=== PATIENT | male | born 1970 | race Caucasian/White ===

== ENCOUNTER 2016-09-11 10:13 | Inpatient (IN) | payer OTHER, MEDICARE ==
[~2016-09-11] VITALS: Ht 177.8 cm; Wt 64.9 kg
[2016-09-11] MEDS ORDERED: SODIUM CHLORIDE 0.9% 1,000ML IVBOLUS ONE (11:00)
[2016-09-11 12:21] LABS: ASPARTATE AMINO TRANSFERASE 33 U/L (15-37); BLOOD UREA NITROGEN 17 mg/dL (7-18)
[2016-09-11] MEDS ORDERED: DOLU50TA PO (12:50)
[2016-09-11] MEDS ORDERED: EMTR1TAB12 PO (12:50)
[2016-09-11] MEDS ORDERED: NAPR220C2 PO (12:50)
[2016-09-11] MEDS ORDERED: LORA-446 PO (12:50)
[2016-09-11] MEDS ORDERED: GADOBUTROL 7.5 MMOL/7.5 ML PFS ONE (13:49)
[2016-09-11 14:00] VITALS: BP 127/86
[2016-09-11] MEDS ORDERED: BISACODYL 10 MG SUPP PR PRN (17:00)
[2016-09-11] MEDS ORDERED: ENALAPRILAT 1.25 MG/ML, 2ML IVPush PRN (17:00)
[2016-09-11] MEDS ORDERED: DOCUSATE 100 MG CAPSULE PO PRN (17:00)
[2016-09-11] MEDS ORDERED: ACETAMINOPHEN 325 MG TABLET PO PRN (17:00)
[2016-09-11] MEDS ORDERED: ONDANSETRON 2MG/ML, 2ML IVPush PRN (17:00)
[2016-09-11] MEDS ORDERED: POLYETHYLENE GLYCOL 17 GM PACKET PO PRN (17:00)
[2016-09-11] MEDS ORDERED: NAPROXEN SODIUM 440 MG PO PRN (17:30)
[2016-09-11] MEDS: LORazepam 1MG TABLET PO PRN (17:44)
[2016-09-11 18:32] VITALS: BP 120/79
[2016-09-11] MEDS: morphine SULFATE 10 MG/ML, 1ML IVPush PRN (21:21)
[2016-09-11] MEDS: OXYcodone IR 5MG TABLET PO PRN (22:06)
[2016-09-12 01:59] VITALS: BP 120/76
[2016-09-12] MEDS: OXYcodone IR 5MG TABLET PO PRN (02:17)
[2016-09-12] MEDS: morphine SULFATE 10 MG/ML, 1ML IVPush PRN (04:21)
[2016-09-12 08:00] VITALS: BP 115/81
[2016-09-12] MEDS ORDERED: DOLUTEGRAVIR SODIUM 50 MG PO SCH (09:00)
[2016-09-12] MEDS ORDERED: EMTRICITABINE/TENOFOVIR 200 MG/300 MG TABLET PO SCH (09:00)
[2016-09-12] MEDS ORDERED: ERGOCALCIFEROL 50,000 UNIT CAPSULE PO SCH (10:00)
[2016-09-12] MEDS ORDERED: GABAPENTIN 300 MG CAPSULE PO SCH (10:00)
[2016-09-12] MEDS: LORazepam 1MG TABLET PO PRN (13:28)
[2016-09-12] MEDS ORDERED: DOLUTEGRAVIR SODIUM 50 MG HOMEMEDPO SCH (13:58)
[2016-09-12] MEDS ORDERED: GADOBUTROL 7.5 MMOL/7.5 ML PFS ONE (14:02)
[2016-09-12 14:30] VITALS: BP 124/77
[2016-09-12] MEDS ORDERED: GABA300C10 PO (16:57)
[2016-09-12] MEDS ORDERED: ERGO500017 PO (16:58)
[2016-09-12] MEDS ORDERED: ONDA4TAB7 PO (17:00)
[2016-09-12] MEDS ORDERED: CYCL5TAB PO (17:02)
[2016-09-13] MEDS ORDERED: EMTRICITABINE/TENOFOVIR 200 MG/300 MG TABLET HOMEMEDPO SCH (09:00)
== END 2016-09-12 17:30 | disposition home or self-care (01) | DRG 74 ==
LOC: ED 12:23 → EDIP 13:07 → 3NE 14:33 → DCLOUNGE 09-12 16:50
PROVIDERS: ADMIT Internal Medicine; ATTEND Internal Medicine
DX: G62.9 Polyneuropathy, unspecified (principal); M51.17 Intervertebral disc disorders with radiculopathy, lumbosacral region; M47.812 Spondylosis without myelopathy or radiculopathy, cervical region; I10 Essential (primary) hypertension; E55.9 Vitamin D deficiency, unspecified; F41.1 Generalized anxiety disorder; Z83.3 Family history of diabetes mellitus; Z88.8 Allergy status to other drugs, medicaments and biological substances
CPT/HCPCS: 36415; 70450; 70553; 72156; 72158; 80053; 81003; 82306; 82607; 83036; 83735; 84439; 84443; 85025; 93005; 99285; A9585; J2405; J2270

== ENCOUNTER 2020-03-02 09:45 | Emergency (ER) | payer BC, MEDICARE, OTHER ==
[~2020-03-02] VITALS: Ht 175.3 cm; Wt 77.0 kg
[~2020-03-02 09:45] MED LIST: CYCL5TAB PO; DOLU50TA PO; EMTR1TAB8 PO; ERGO500017 PO; GABA300C10 PO; LORA-446 PO; NAPR220C2 PO; ONDA4TAB7 PO
--- NOTE | 2020-03-02 09:59 | NUR ---
SLIGHT DROOP RIGHT SIDE OF FACE, MORE NUMBNESS ON RIGHT SIDE THAN LEFT. STRENGTH EQUAL. MD MILLER IN TRIAGE FOR EXAM.
--- NOTE | 2020-03-02 10:09 | NUR ---
LABS DRAWN. PT A&O4, RESP EVEN & UNLABORED, SPEECH CLEAR. PT TO CT PER [facility]. PER PARTNER, PT EXPERIENCED SEVERE ABEL LAST NOC; TOOK TYLENOL; ABEL IMPROVED. THIS MORNING, PT WAS DRINKING COFFEE AND COFFEE "LEAKED OUT OF THE CORNER OF HIS MOUTH". PARTNER (AN RN) DID HOME STROKE RELATED TESTING; NO STROKE DEFECITS NOTED. PT HAS HX OF ABEL'S AND DDD.
--- NOTE | 2020-03-02 10:20 | NUR ---
PT REPORTS RT SIDED HEAD PAIN CURRENTLY. RT SIDED FACIAL DROOP NOTED. SPEECH CLEAR. DENIES DYSPNEA, TROUBLE SWALLOWING, RECENT URI SX. UE & LE STRENGTH STRONG AND EQUAL BILATERAL. NO MEDS TAKEN FOR SX TODAY.
[2020-03-02 10:23] LABS: BASOPHILS % (AUTO) 1 % (0-1); EOSINOPHILS % (AUTO) 4 % (1-7); LYMPHOCYTES % (AUTO) 44 % (22-44); MEAN CORPUSCULAR HEMOGLOBIN 29.8 pg (27.5-34.5); MEAN CORPUSCULAR HGB CONC 34.5 g/dL (33.2-36.2); MEAN PLATELET VOLUME 7.6 fL (7.4-10.4); MONOCYTES % (AUTO) 11 % (2-9); NEUTROPHILS % (AUTO) 41 % (42-75); PLATELET COUNT 241 x10^3/uL (130-400); RED BLOOD COUNT 5.58 x10^6/uL (4.38-5.82); RED CELL DISTRIBUTION WIDTH 12.7 % (9.4-14.8)
[2020-03-02 10:25] LABS: MD NO
[2020-03-02] MEDS ORDERED: BICT1TAB PO (10:27)
[2020-03-02] MEDS ORDERED: FAMO10TA31 PO (10:27)
[2020-03-02] MEDS ORDERED: ZOLP10TA PO (10:27)
[2020-03-02] MEDS ORDERED: CELE100C PO (10:27)
--- NOTE | 2020-03-02 10:33 | NUR ---
DYSPHAGIA SCREEN PASSED; PT STATES ABLE TO SWALLOW BUT WATER LEAKS OUT OF RT SIDE OF MOUTH.
[2020-03-02 10:34] LABS: ALBUMIN 4.4 g/dL (3.4-5.0); ANION GAP 5 mmol/L (5-15); CALCIUM 9.2 mg/dL (8.5-10.1); CHLORIDE 110 mmol/L (98-107); CREATININE 1.11 mg/dL (0.7-1.3)
[2020-03-02 12:45] VITALS: BP 120/87
== END 2020-03-02 12:47 | disposition home or self-care (01) ==
LOC: ED 11:29
DX: G51.0 Bell's palsy (principal)
CPT/HCPCS: 36415; 70450; 80048; 82040; 85025; 99284